=== PATIENT | female | born 1985 | race Caucasian/White ===

== ENCOUNTER 2016-06-18 21:34 | Emergency (ER) | payer SELFPAY ==
[~2016-06-18] VITALS: Ht 160 cm; Wt 66.2 kg
[2016-06-19 00:26] VITALS: BP 137/88
== END 2016-06-19 00:28 | disposition home or self-care (01) ==
LOC: ED 21:34
DX: S89.92XA Unspecified injury of left lower leg, initial encounter (principal); S89.91XA Unspecified injury of right lower leg, initial encounter; M25.562 Pain in left knee; M25.561 Pain in right knee; X58.XXXA Exposure to other specified factors, initial encounter; Y93.89 Activity, other specified; Y99.8 Other external cause status; Y92.89 Other specified places as the place of occurrence of the external cause
CPT/HCPCS: J1885